=== PATIENT | female | born 1985 | race Caucasian/White ===

== ENCOUNTER 2019-04-26 12:33 | Emergency (ER) | payer OTHER, SELFPAY ==
[2019-04-26] VITALS (8 sets, daily range): BP systolic 140–150; BP diastolic 100–121; PULSE 90–100; RESP 18–22; TEMP 36.6–36.8; O2SAT 20–100; BMI 46.5
--- NOTE | 2019-04-26 12:44 | CM.ED ---
SOCIAL WORK PATIENT SENT IN BY [facility]. SPOKE WITH DRE FROM THE [facility] WHO REPORTS WILL BE BRINGING OVER PINK SLIP AND CRISIS ASSESSMENT. PLAN: INPATIENT PSYCH HOSPITALIZATION, CRISIS WORKING ON PLACEMENT.
--- NOTE | 2019-04-26 12:55 | ED.RN ---
pt states she stopped taking all of her medications x1 week ago. states she just does not like pills.
--- NOTE | 2019-04-26 13:00 | ED.RN ---
pt talking to self but denies hallucinations. pleasant and cooperative with staff. when asked if she has new stress in her life she states maybe if I would just do the things right I wouldn't have this. support provided. will get sandwich for pt per her request.
--- NOTE | 2019-04-26 13:36 | NURSING ---
DRE, CRISIS, HERE
--- NOTE | 2019-04-26 13:49 | ED.DCSUM_ITS ---
- ER Visit Summary Date of Service: 04/26/19 Chief Complaint: Manic History of Present Illness: The patient is a 33 F who presents for mental health evaluation. Patient has been exhibiting acute carlitos. She continually is saying she needs to be working. Her father states that she has been picking strawber mariana and incessantly cleaning the house, even during the night. She even came into his house and was cleaning. She has a history of bipolar disorder and is not been on her medications for 3 years. Patient denies any symptoms including chest pain, shortness of breath, abdominal pain, nausea or vomiting, diarrhea or urinary symptoms. She denies . Physical Examination: Vital signs: afebrile, hemodynamically stable, no hypoxia on room air General: well nourished, well developed, in no distress, constantly fidgeting and saying I need to be working Skin: warm, dry, no rash, no pallor HEENT: normocephalic and atraumatic; PERRL, EOMI, moist mucous membranes Cardiovascular: regular rate and rhythm without murmurs, no peripheral edema, 2+ pulses all distal extremities Respiratory: No increased work of breathing, lungs are clear to auscultation bilaterally, no rales, rhonchi or wheezing Abdominal: Abdomen is soft, nontender with normoactive bowel sounds, no guarding or rebound, no masses MSK: Moves all extremities, no deformities, normal strength Neuro: Awake and alert, oriented ?4. No facial droop, sensation and motor function intact and symmetric Psych: No suicidal or homicidal ideation, patient is exhibiting symptoms of carlitos Test Results: Abnormal Lab Results 04/26/19 04/26/19 04/26/19 13:55 13:55 13:55 WBC 7.8 RBC 4.75 Hgb 14.6 Hct 43.0 MCV 90.5 MCH 30.7 MCHC 34.0 RDW 12.6 RDW Differential 41.7 Plt Count 280 MPV 9.5 Immature Gran % (Auto) 0.100 Neut % (Auto) 66.3 Lymph % (Auto) 26.0 [place] % (Auto) 5.7 Eos % (Auto) 1.8 Baso % (Auto) 0.1 Absolute Neuts (auto) 5.2 Absolute Lymphs (auto) 2.02 Total Counted Not Reportable Sodium 139 Potassium 3.9 Chloride 111 H Carbon Dioxide 22.0 Anion Gap 6 BUN 12 Creatinine 0.70 Estim Creat Clear Calc 100.94 Est GFR (MDRD) Af Amer 122 Est GFR (MDRD) Non-Af 101 BUN/Creatinine Ratio 17.2 Glucose 114 H Calcium 8.9 Total Bilirubin Direct Bilirubin AST ALT Alkaline Phosphatase Total Protein Albumin Globulin Serum , Qual Urine Opiates Screen Urine Methadone Screen Ur Barbiturates Screen Ur Phencyclidine Scrn Ur Amphetamines Screen U Methamphetamin-MDMA U Benzodiazepines Scrn Urine Cocaine Screen U Cannabinoids Screen Ur Drug Screen Comment Ethyl Alcohol 10.0 04/26/19 04/26/19 04/26/19 13:55 13:55 13:55 WBC RBC Hgb Hct MCV MCH MCHC RDW RDW Differential Plt Count MPV Immature Gran % (Auto) Neut % (Auto) Lymph % (Auto) [place] % (Auto) Eos % (Auto) Baso % (Auto) Absolute Neuts (auto) Absolute Lymphs (auto) Total Counted Sodium Potassium Chloride Carbon Dioxide Anion Gap BUN Creatinine Estim Creat Clear Calc Est GFR (MDRD) Af Amer Est GFR (MDRD) Non-Af BUN/Creatinine Ratio Glucose Calcium Total Bilirubin 1.20 H Direct Bilirubin 0.17 AST 20 ALT 23 Alkaline Phosphatase 64 Total Protein 8.1 Albumin 3.8 Globulin 4.3 H Serum , Qual NEGATIVE Urine Opiates Screen NEGATIVE Urine Methadone Screen NEGATIVE Ur Barbiturates Screen NEGATIVE Ur Phencyclidine Scrn NEGATIVE Ur Amphetamines Screen NEGATIVE U Methamphetamin-MDMA NEGATIVE U Benzodiazepines Scrn NEGATIVE Urine Cocaine Screen NEGATIVE U Cannabinoids Screen NEGATIVE Ur Drug Screen Comment Ethyl Alcohol Emergency Department Course and Treatment: Patient presents for acute manic episode and medication noncompliance. Medical screening exam was performed and patient was medically cleared. patient was evaluated by the counseling center and pink slipped due to acute carlitos and inability to care for her basic needs. Patient will most likely be accepted by [facility]. Final disposition is pending patient acceptance for transfer by an inpatient psychiatric facility. Treatment Plan: [] Disposition: [] Impression: Acute manic episode, medication noncompliance, history of bipolar disorder This note was generated with Mailsuite dictation software. It may contain incorrect words, spelling, and punctuation that were not noted in review of the chart prior to signing ED Disposition - Plan for ED Patient: Referrals: Tulio Ray, [Primary Care Provider] -
[2019-04-26 14:07] LABS: Absolute Lymphocyte Count 2.02 X10^3/ul (0.83-4.51); Absolute Neutrophil Count 5.2 X10^3/uL (2.0-7.7); Basophil# 0.01 X10^3/uL; Basophil% 0.1 % (0-1); Eosinophil# 0.14 X10^3/uL; Eosinophils% 1.8 % (0-5); Hemoglobin 14.6 g/dl (12.0-15.0); Lymphocyte # 2.02 X10^3/ul (4.0); Mean Corpuscular Hgb 30.7 pg (27.0-32.0); Mean Corpuscular Volume 90.5 fL (81-99); Mean Platelet Vol. 9.5 fl (6.2-12.0); Monocyte# 0.44 X10^3/uL; Monocyte% 5.7 % (0-10); Neutrophil # 5.15 X10^3/uL (2.7-7.7); Neutrophil % 66.3 % (47-70); POSITIVE COUNT NO; POSITIVE DIFFERENTIAL NO; POSITIVE MORPHOLOGY NO; Platelet Count 280 K/mm3 (150-450); RBC Distribution Width CV 12.6 % (11.6-14.6); RBC Distribution Width SD 41.7 fl (35.1-43.9); Red Blood Count 4.75 M/mm3 (4.2-5.4); White Blood Count 7.8 K/mm3 (4.4-11.0)
--- NOTE | 2019-04-26 14:08 | ED.RN ---
pt stopped all meds as she doesn't like taking pills. I left her meds list active for continuity of care for next facility.
[2019-04-26 14:17] LABS: Internal QC Validated? YES +Cl - CLEAR BKGD; Pregnancy, Serum, hCG Quali. NEGATIVE Negative
[2019-04-26 14:18] LABS: Amphetamine Urine VISTA NEGATIVE (<1000 ng/mL); Barbiturate Urine VISTA NEGATIVE (< 200 ng/mL); Benzodiazepine Urine VISTA NEGATIVE (< 200 ng/mL); Cocaine Urine VISTA NEGATIVE (< 300 ng/mL); Ecstacy Urine VISTA NEGATIVE (< 500 ng/mL); Methadone Urine VISTA NEGATIVE (< 300 ng/mL); PCP Urine VISTA NEGATIVE (< 25 ng/mL); THC Urine VISTA NEGATIVE (< 50 ng/mL); Vista UDS pH Range 8
[2019-04-26 14:19] LABS: Anion Gap 6 (5-15); BUN 12 mg/dL (7-18); BUN/Creat Ratio 17.2 RATIO (10-20); Calcium,Total 8.9 mg/dL (8.5-10.1); Chloride 111 mmol/L (98-107); EST Glomerular Filtration Rate 101 mL/min (>60); Est Glom Filt Rate - Afr Amer 122 mL/min (>60); Estimated Creatinine Clearance 100.94 ml/min; Glucose 114 mg/dL (74-106); Potassium 3.9 mmol/L (3.5-5.1); Sodium Level 139 mmol/L (136-145)
--- NOTE | 2019-04-26 15:13 | ED.RN ---
[facility] needs ekg, liver panel for admission.
--- NOTE | 2019-04-26 15:14 | EKG12_ITS ---
Test Reason : MENTAL ZEESHAN Blood Pressure : / mmHG Vent. Rate : 076 BPM Atrial Rate : 076 BPM P-R Int : 164 ms QRS Dur : 088 ms QT Int : 366 ms P-R-T Axes : 041 023 015 degrees QTc Int : 411 ms Normal sinus rhythm Normal ECG Confirmed by PATRICIA MEJIA ([id number]), photograph editor JEFFY MORALES ([id number]) on 04/28/2019 11:49:08 AM Referred By: GERMAINE Confirmed By:CHRIS MEJIA
[2019-04-26 16:07] LABS: AST(SGOT) 20 U/L (15-37); Alanine Aminotransfer ALT/SGPT 23 U/L (13-56); Albumin, Serum 3.8 g/dL (3.2-5.0); Alkaline Phosphatase 64 U/L (45-117); Bilirubin, Direct 0.17 mg/dL (0.00-0.30); Globulin 4.3 g/dL (2.2-4.2); Protein, Total 8.1 g/dL (6.4-8.2)
--- NOTE | 2019-04-26 17:45 | ED.RN ---
Documents requested by [facility] faxed.
== END 2019-04-26 20:45 ==
LOC: ED 13:14
PROVIDERS: Emergency Provider Emergency Medicine; Family Provider Family Medicine; PCP Family Medicine
DX: F31.9 Bipolar disorder, unspecified (principal); Z91.14 Patient's other noncompliance with medication regimen
CPT/HCPCS: 80048; 80076; 80307; 80320; 84703; 85025; 93005; 99283; G0480

== ENCOUNTER 2019-06-14 18:07 | Emergency (ER) | payer OTHER, SELFPAY ==
[2019-04-26 12:33] VITALS: BMI 46.5
[2019-06-14 18:08] VITALS: BP 117/85; PULSE 100; RESP 18; TEMP 36.7; O2SAT 93; BMI 40.7
--- NOTE | 2019-06-14 18:25 | ED.VIS.PSYCH ---
History of Present Illness Chief Complaint: Suicidal Informant: Patient, - - Law enforcement Onset: Days Context: Sudden Onset Conflict: Work Timing: Continuous, Waxes and wanes Current Severity: Moderate Maximum Severity: Severe Relieved by: Nothing Associated Symptoms: Depressed, Change in Eating, Change in sleeping, Decreased Interest, Decreased Concentration, Suicidal Thoughts, Easily distracted, Pressured Speech. Negative for: Hostile, Threatening, Confusion, Visual Hallucinations, Auditory Hallucinations Specific plan (suicidal thought): Take all of her psychiatric meds or shoot herself Narrative: Patient is a 33-year-old woman who was recently hospitalized for psychiatric reasons. She states she is under a lot of stress. 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 She does have access to guns. She states the ammunition is presently locked up. She believes she is under too much stress from work. She works at her residence. She told her friend she needed help and hospitalization. Friends contacted . She admits that she told the that she would harm herself either by taking pills or shooting herself. She does have history of bipolar affective disorder, borderline personality disorder with prior self-harm. She does not recall which medication she is on for her bipolar affective disorder. See a psychiatrist at the counseling center. She states presently she does not have a counselor. Prior similar symptoms: Yes Recent Illness/Hospitalization: Yes - Past Medical History (1) Bipolar 1 disorder, depressed Status: Chronic (2) Dyslipidemia Status: Chronic (3) Hypertension Status: Chronic (4) Hypothyroidism Status: Chronic Past Medical History - Allergies and Home Meds Allergies/Adverse Reactions: Allergies No Known Allergies Allergy (Verified 06/14/19 18:08) Primary Care Physician: Tulio Ray DO [Primary Care Provider] - Prior records reviewed: Yes Lives: Alone Smoking Status: Never smoker Alcohol: None Drugs: None - Family History Paternal Family History: Reports: No pertinent history - No history of pancreatitis or pancreatic cancer in first-degree family relative. Review of Systems General: Denies: Chills, Fever, Sweats Eyes: Denies: Visual changes - bilaterally, Blurred Vision - bilaterally, Diplopia ENT: Denies: Bilateral ear pain, Rhinorrhea, Sore throat Cardiovascular: Denies: Chest pain, Palpitations Respiratory: Denies: Dyspnea, Cough, Dyspnea on exertion Gastrointestinal: Denies: Abdominal pain, Nausea, Vomiting, Diarrhea, Melena, Hematochezia Genitourinary: Denies: Dysuria, Hematuria, Frequency Musculoskeletal: Denies: Back pain, Extremity Pain Skin: Denies: Rash, Wounds Neurological: Denies: Headache, Weakness, Numbness Psych: Reports: Depression, Anxiety, Suicidal thoughts, Suicidal ideations Allergy: Denies: Uticaria, Swelling of the mouth, Swelling of the tongue Physical Exam Vital Signs/Narrative: Vital Signs Temp Pulse Resp BP Pulse Ox 06/14/19 18:08 98.0 F 100 18 117/85 H 93 Inital Vital Signs reviewed: Yes General: Well nourished, Well developed, Obese Head: Normocephalic, Atraumatic Eyes: Perrl, EOMI ENT: Moist mucous membranes, No rhinorrhea Neck: Supple, Nontender Cardiovascular: Regular rate, Regular rhythm, No murmurs Respiratory: No distress, CTA bilaterally, Chest nontender Abdomen: Soft, Nontender, Nondistended, Normal bowel sounds Back: Nontender, Normal Inspection Extremities: Nontender, No Edema Skin: Normal color, No rash Neurological: Alert, Oriented x3, Cranial nerves II-XII grossly intact, Normal Strength, Normal Sensation Psych: Normal Appearance - Shunt was wearing examination gown when I saw her., Pressured Speech, Suicidal thoughts, Limited Insight, Limited Judgement. Negative for: Normal Speech Pattern, Logical sequential goal directed thoughts, No suicidal or homicidal ideation, Normal Stable Appropriate Affect, Good Insight, Good Judgement, Homicidal thoughts, Hallucinations, Paranoid Ideation Diagnostic/Tx/Re-eval Laboratory Results 06/14/19 06/14/19 06/14/19 18:30 18:30 18:30 WBC 7.8 RBC 4.60 Hgb 14.1 Hct 40.7 MCV 88.5 MCH 30.7 MCHC 34.6 RDW Std Deviation 36.8 RDW Coeff of Gretchen 11.6 Plt Count 287 MPV 9.5 Immature Gran % (Auto) 0.100 Neut % (Auto) 61.6 Lymph % (Auto) 28.7 [place] % (Auto) 7.8 Eos % (Auto) 1.4 Baso % (Auto) 0.4 Absolute Neuts (auto) 4.8 Absolute Lymphs (auto) 2.25 Nucleated RBC % 0 Sodium 139 Potassium 3.4 L Chloride 107 Carbon Dioxide 27.0 Anion Gap 5 BUN 11 Creatinine 0.88 Estim Creat Clear Calc 80.29 Est GFR (MDRD) Af Amer 94 Est GFR (MDRD) Non-Af 78 BUN/Creatinine Ratio 12.5 Glucose 104 Calcium 9.3 Serum , Qual Urine Opiates Screen Urine Methadone Screen Ur Barbiturates Screen Ur Phencyclidine Scrn Ur Amphetamines Screen U Methamphetamin-MDMA U Benzodiazepines Scrn Urine Cocaine Screen U Cannabinoids Screen Ur Drug Screen Comment Ethyl Alcohol < 3.0 06/14/19 06/14/19 18:30 18:30 WBC RBC Hgb Hct MCV MCH MCHC RDW Std Deviation RDW Coeff of Gretchen Plt Count MPV Immature Gran % (Auto) Neut % (Auto) Lymph % (Auto) [place] % (Auto) Eos % (Auto) Baso % (Auto) Absolute Neuts (auto) Absolute Lymphs (auto) Nucleated RBC % Sodium Potassium Chloride Carbon Dioxide Anion Gap BUN Creatinine Estim Creat Clear Calc Est GFR (MDRD) Af Amer Est GFR (MDRD) Non-Af BUN/Creatinine Ratio Glucose Calcium Serum , Qual NEGATIVE Urine Opiates Screen NEGATIVE Urine Methadone Screen NEGATIVE Ur Barbiturates Screen NEGATIVE Ur Phencyclidine Scrn NEGATIVE Ur Amphetamines Screen NEGATIVE U Methamphetamin-MDMA NEGATIVE U Benzodiazepines Scrn NEGATIVE Urine Cocaine Screen NEGATIVE U Cannabinoids Screen NEGATIVE Ur Drug Screen Comment Ethyl Alcohol Patient with pressured speech suicidal thoughts anxiousness. With her specifically stating she has access to gun and shoot herself or take pills will perform appropriate test to facilitate placement into a psychiatric facility. The counseling center will need to see patient for admission. Patient's laboratory testing is unremarkable. Spoke with counselor from crisis center who is presently seeing patient. In my professional medical opinion patient has no medical conditions that would require medical treatment. There is no medical explanation for patient's symptoms. She is safe for admission to psychiatric facility to treat her psychiatric illness. ED Disposition - Plan for ED Patient: Disposition: Acute Care Hospital - Other Diagnosis: Hypomania, Suicidal ideations, Anxiety disorder Referrals: Tulio Ray DO [Primary Care Provider] -
[2019-06-14 18:45] LABS: Absolute Lymphocyte Count 2.25 X10^3/uL (0.83-4.51); Absolute Neutrophil Count 4.8 X10^3/uL (2.0-7.7); Basophil# 0.03 X10^3/uL; Basophil% 0.4 % (0-1); Eosinophil# 0.11 X10^3/uL; Eosinophils% 1.4 % (0-5); Hematocrit 40.7 % (37-47); Hemoglobin 14.1 g/dL (12.0-15.0); Lymphocyte # 2.25 X10^3/ul (4.0); Lymphocyte % 28.7 % (19-41); Mean Corp Hgb Conc 34.6 g/dL (32-36); Mean Corpuscular Hgb 30.7 pg (27.0-32.0); Mean Corpuscular Volume 88.5 fL (81-99); Mean Platelet Vol. 9.5 fl (6.2-12.0); Monocyte# 0.61 X10^3/uL; Monocyte% 7.8 % (0-10); NRBC Flagged by Analyzer 0 % (0-5); Neutrophil # 4.82 X10^3/uL (2.7-7.7); Neutrophil % 61.6 % (47-70); Platelet Count 287 K/mm3 (150-450); RBC Distribution Width CV 11.6 % (11.6-14.6); RBC Distribution Width SD 36.8 fl (35.1-43.9); White Blood Count 7.8 K/mm3 (4.4-11.0)
--- NOTE | 2019-06-14 19:00 | CM.ED ---
SOCIAL WORK CONRADO FROM CRISIS HERE TO EVALUATE PATIENT.
[2019-06-14 19:06] LABS: Anion Gap 5 (5-15); BUN 11 mg/dL (7-18); BUN/Creat Ratio 12.5 RATIO (10-20); Calcium,Total 9.3 mg/dL (8.5-10.1); Chloride 107 mmol/L (98-107); Creatinine, Serum 0.88 mg/dL (0.55-1.02); EST Glomerular Filtration Rate 78 mL/min (>60); Est Glom Filt Rate - Afr Amer 94 mL/min (>60); Estimated Creatinine Clearance 80.29 ml/min; Glucose 104 mg/dL (74-106); Potassium 3.4 mmol/L (3.5-5.1); Sodium Level 139 mmol/L (136-145)
[2019-06-14 19:07] VITALS: RESP 16
[2019-06-14 19:07] LABS: Internal QC Validated? YES +Cl - CLEAR BKGD; Pregnancy, Serum, hCG Quali. NEGATIVE Negative
[2019-06-14 19:22] LABS: Amphetamine Urine VISTA NEGATIVE (<1000 ng/mL); Barbiturate Urine VISTA NEGATIVE (< 200 ng/mL); Benzodiazepine Urine VISTA NEGATIVE (< 200 ng/mL); Cocaine Urine VISTA NEGATIVE (< 300 ng/mL); Ecstacy Urine VISTA NEGATIVE (< 500 ng/mL); Methadone Urine VISTA NEGATIVE (< 300 ng/mL); PCP Urine VISTA NEGATIVE (< 25 ng/mL); THC Urine VISTA NEGATIVE (< 50 ng/mL); Vista UDS pH Range 6
[2019-06-14 19:32] LABS: Alcohol, Blood (Medical)-Serum < 3.0 mg/dL
[2019-06-14] MEDS: LORazepam 0.5 MG Tablet PO (20:45)
[2019-06-14 20:47] VITALS: PULSE 86; RESP 17
[2019-06-14 21:00] VITALS: BP 113/80; PULSE 82; RESP 16; O2SAT 92
[2019-06-14 22:00] VITALS: RESP 16
[2019-06-14] MEDS: busPIRone 5 MG Tablet 10 MG PO (22:12)
[2019-06-14] MEDS: Metoprolol Tartrate 25 MG Tablet PO (22:12)
[2019-06-14] MEDS: hydrOXYzine PAM 25 MG Capsule 50 MG PO (22:12)
[2019-06-14] MEDS: MELATONIN 3 MG TABLET PO (22:12)
[2019-06-14 23:00] VITALS: RESP 14
[2019-06-15] VITALS (8 sets, daily range): BP systolic 110–120; BP diastolic 70–75; PULSE 64–68; RESP 14–18; O2SAT 94–98
--- NOTE | 2019-06-15 00:47 | EKG12_ITS ---
Test Reason : MHC Blood Pressure : / mmHG Vent. Rate : 066 BPM Atrial Rate : 066 BPM P-R Int : 194 ms QRS Dur : 092 ms QT Int : 412 ms P-R-T Axes : 044 013 003 degrees QTc Int : 431 ms Normal sinus rhythm Normal ECG Confirmed by ROBERTO PATTON, PATRICIA ([id number]), supervising editor trailer JUAN MOULTON ([id number]) on 06/16/2019 1:14:41 PM Referred By: LUIS ANGEL Confirmed By:CHRIS MEJIA MD
--- NOTE | 2019-06-15 00:53 | ED.RN ---
[facility] CALLED REQUESTING EKG, LIVER PROFILE AND COMPLETE UA.
[2019-06-15 00:57] LABS: Bacteria 0 SEEN /hpf (None Seen); Mucous, Urine 0 SEEN /hpf (<or=2+); Red Blood Cells-Urine 0 SEEN /hpf (0-5); White Blood Cells 0 SEEN /hpf (0-5)
[2019-06-15 01:03] LABS: Color, Urine Yellow (Yellow); Glucose, Dipstick Normal (Normal); Ketone-Dipstick Negative (Negative); Leukocyte Esterase-Dipstick 25 /ul (Negative); Nitrite-Dipstick Negative (Negative); Occult Blood-Urine Negative /ul (Negative); Protein-Dipstick Negative (Negative); Urine Bilirubin Dipstick Negative (Negative); Urine Clarity Clear (Clear); Urine Urobilinogen Normal (Normal)
[2019-06-15 01:11] LABS: Squamous Epithelial Cells - UA 0-5 SEEN /hpf (5-10)
[2019-06-15 01:23] LABS: AST(SGOT) 18 U/L (15-37); Alanine Aminotransfer ALT/SGPT 29 U/L (13-56); Albumin, Serum 3.8 g/dL (3.2-5.0); Alkaline Phosphatase 62 U/L (45-117); Bilirubin, Direct 0.29 mg/dL (0.00-0.30); Globulin 4.2 g/dL (2.2-4.2)
[2019-06-15] MEDS: LORazepam 0.5 MG Tablet PO (03:32)
[2019-06-15] MEDS: busPIRone 5 MG Tablet 10 MG PO (06:02)
[2019-06-15] MEDS: hydrOXYzine PAM 25 MG Capsule 50 MG PO (10:11)
--- NOTE | 2019-06-15 10:15 | ED.RN ---
MINERVA FROM [facility] TO FOLLOW-UP WITH [facility] TO SEE PT STATUS
--- NOTE | 2019-06-15 10:17 | ED.RN ---
PT ACCEPTED AT [facility]. AWAITING BED ASSIGNMENT
--- NOTE | 2019-06-15 12:27 | ED.RN ---
pt accepted. [facility] ready for pt. pt to go to unit c1. report to [phone] ext [phone]
== END 2019-06-15 13:11 ==
PROVIDERS: Emergency Provider Emergency Medicine; Family Provider Family Medicine; PCP Family Medicine
DX: F31.9 Bipolar disorder, unspecified (principal); R45.851 Suicidal ideations; F41.9 Anxiety disorder, unspecified; F60.3 Borderline personality disorder; I10 Essential (primary) hypertension; E78.5 Hyperlipidemia, unspecified; E03.9 Hypothyroidism, unspecified; Z91.5 Personal history of self-harm; Z79.899 Other long term (current) drug therapy
CPT/HCPCS: 80048; 80076; 80307; 80320; 81001; 84703; 85025; 93005; 99285; G0480